=== PATIENT | female | born 1970 | race Caucasian/White ===

== ENCOUNTER → 2023-08-22 09:24 | Outpatient (REF) | payer BC, SELFPAY | LOC: HWRAD 09:24 | PROVIDERS: ATTENDING PHYSICIAN Internal Medicine Gastroenterology; FAMILY PHYSICIAN Family Medicine | DX: R93.89 Abnormal findings on diagnostic imaging of other specified body structures (principal) | CPT/HCPCS: 76700 ==

== ENCOUNTER 2024-01-21 06:17 | Day surgery (SDC) | payer BC, SELFPAY ==
[2024-01-21 12:31] VITALS: BMI 37.4
[2024-01-21 12:32] VITALS: BP 131/85; BMI 37.4
[2024-01-21 12:53] LABS: Glucose - Point of Care 100 mg/dl (70-99)
[2024-01-21 14:13] VITALS: BP 127/60
[2024-01-21 14:15] VITALS: BP 128/74
[2024-01-21 14:26] VITALS: BP 128/67
== END 2024-01-21 14:45 | disposition home or self-care (01) ==
LOC: SDS 06:17
PROVIDERS: ATTENDING PHYSICIAN Internal Medicine Gastroenterology
DX: K29.50 Unspecified chronic gastritis without bleeding (principal); K83.8 Other specified diseases of biliary tract; K31.7 Polyp of stomach and duodenum
CPT/HCPCS: 43237; 43239; 88305; 82962; 88342

== ENCOUNTER → 2024-11-04 09:50 | Outpatient (REF) | payer BC, SELFPAY | LOC: WDC 09:50 | PROVIDERS: ATTENDING PHYSICIAN Obstetrics & Gynecology; FAMILY PHYSICIAN Family Medicine | DX: N63.10 Unspecified lump in the right breast, unspecified quadrant (principal); N63.11 Unspecified lump in the right breast, upper outer quadrant | CPT/HCPCS: 76642; 77061; 77065 ==

== ENCOUNTER → 2025-05-20 11:01 | Outpatient (REF) | payer BC, SELFPAY | LOC: HWWDC 11:01 | PROVIDERS: ATTENDING PHYSICIAN Obstetrics & Gynecology; FAMILY PHYSICIAN Family Medicine | DX: Z12.31 Encounter for screening mammogram for malignant neoplasm of breast (principal) | CPT/HCPCS: 77063; 77067 ==

== ENCOUNTER 2025-06-24 06:14 | Day surgery (SDC) | payer BC, SELFPAY ==
[2025-06-10 12:14] VITALS: BMI 29.2
[2025-06-24] VITALS (11 sets, daily range): BP systolic 108–133; BP diastolic 61–80; BMI 29.2
[2025-06-24] MEDS: NORMOSOL-R/PLASMALYTE-A 1000 IV (09:20)
== END 2025-06-24 14:10 | disposition home or self-care (01) ==
LOC: SDS 06:14
PROVIDERS: ATTENDING PHYSICIAN Specialist; FAMILY PHYSICIAN Family Medicine
DX: M75.121 Complete rotator cuff tear or rupture of right shoulder, not specified as traumatic (principal); Z87.39 Personal history of other diseases of the musculoskeletal system and connective tissue
CPT/HCPCS: 29827; 29826; 36415; 93005; C1713